=== PATIENT | female | born 1955 | race Caucasian/White ===

== ENCOUNTER 2017-08-15 15:37 | Emergency (ER) | payer MEDICARE ==
[~2017-08-15] VITALS: Ht 165.1 cm; Wt 47.2 kg
[~2017-08-15 15:37] MED LIST: AMBIEN 5 MG TABL5 M1; AMITRIPTYLINE H50 M2; ATIVAN0.5 M1 PO; BACTRIM DS TAB1 EACH PO; BUTALB-APAP-CA1 EACH PO; CARISOPRODOL 3350 M1; CARISOPRODOL 3350 MG PO; CIPRO500 M1 PO; CIPRO500 MG PO; CITRATE OF MAG296 ML PO; CLONAZEPAM 1 MG1 M1 PO; COCET PLUS TAB1 EACH; CONCERTA36 MG; CRESTOR10 MG PO; HYDROCODONE-APA1 TA1 PO; LEVAQUIN 250 M250 MG PO; MIRALAX17 GM PO; OXYCODONE HCL 55 MG PO; OXYCODONE HCL10 MG PO; OXYCODONE HCL5 M1; OXYCONTIN10 M1 PO; OXYCONTIN20 M1 PO; PHENAZOPYRIDIN200 M2 PO; SERTRALINE HCL50 MG PO; SYNTHROID50 MCG PO; TRAMADOL 50 MG50 MG; TRAZODONE HCL50 MG PO; ZANAFLEX4 MG PO; ZOFRAN 4 MG ORAL4 MG PO; ZOFRAN ODT4 MG PO
[2017-08-15] MEDS ORDERED: ZOFRAN4 MG PO (17:56)
[2017-08-15] MEDS ORDERED: BUTALB-APAP-CA1 EACH PO (17:56)
[2017-08-15 18:11] VITALS: BP 110/44
== END 2017-08-15 18:12 | disposition home or self-care (01) ==
LOC: M.ERS 15:37
DX: R51 Headache (principal); F32.9 Major depressive disorder, single episode, unspecified; Z90.721 Acquired absence of ovaries, unilateral; Z88.1 Allergy status to other antibiotic agents

== ENCOUNTER 2017-08-19 15:31 | Emergency (ER) | payer MEDICARE ==
[~2017-08-19] VITALS: Ht 165.1 cm; Wt 46.7 kg
[~2017-08-19 15:31] MED LIST changes: +ZOFRAN4 MG PO
[2017-08-19 16:07] LABS: ABSOLUTE EOSINOPHILS 0.2 thou/uL (0.0-0.7); ABSOLUTE LYMPHOCYTES 1.1 thou/uL (0.8-5.3); ABSOLUTE MONOCYTES 0.3 thou/uL (0.0-1.2); ABSOLUTE NEUTROPHILS 3.3 thou/uL (1.6-8.1); BASOPHILS 0.5 %; EOSINOPHILS 3.1 %; HEMATOCRIT 35.7 % (37.0-47.0); LYMPHOCYTES 22.1 %; MCH 28.9 pg (26.0-34.0); MCHC 33.6 g/dL (28.0-37.0); MCV 86.1 fL (80.0-100.0); MONOCYTES 6.9 %; MPV 10.4 fl. (7.2-11.1); NUCLEATED RBCS 0 /100WBC; PLATELET COUNT* 159 thou/uL (150-400); POLYS 67.4 %; RBC 4.15 mil/uL (4.20-5.00)
[2017-08-19 16:13] LABS: CALCIUM 8.8 mg/dL (8.5-10.1); CREATININE 0.8 mg/dL (0.6-1.3); POTASSIUM 3.3 mmol/L (3.5-5.1)
[2017-08-19 16:18] LABS: ALBUMIN 3.6 g/dL (3.4-5.0); TOTAL BILIRUBIN 0.2 mg/dL (<0.1-1.0); TOTAL PROTEIN 6.3 g/dL (6.4-8.2)
[2017-08-19] MEDS ORDERED: AUGMENTIN 875-1 EACH PO (19:09)
[2017-08-19] MEDS ORDERED: ACETAMINOPHEN-1 EAC1 PO (19:09)
[2017-08-19] MEDS ORDERED: MEDROLDOSEPACK PO (19:09)
[2017-08-19 19:26] VITALS: BP 104/45
== END 2017-08-19 19:29 | disposition home or self-care (01) ==
LOC: M.ERS 15:31
PROVIDERS: Physician Assistant
DX: J32.9 Chronic sinusitis, unspecified (principal); F32.9 Major depressive disorder, single episode, unspecified; Z88.1 Allergy status to other antibiotic agents

== ENCOUNTER 2017-08-31 18:28 | Emergency (ER) | payer MEDICARE ==
[~2017-08-31] VITALS: Ht 165.1 cm; Wt 46.7 kg
[~2017-08-31 18:28] MED LIST changes: +ACETAMINOPHEN-1 EAC1 PO; +AUGMENTIN 875-1 EACH PO; +MEDROLDOSEPACK PO
[2017-08-31] MEDS ORDERED: FIORINAL 50-321 EACH PO (20:06)
[2017-08-31] MEDS ORDERED: XANAX1 MG PO (20:06)
[2017-08-31 20:22] VITALS: BP 116/47
== END 2017-08-31 20:23 | disposition home or self-care (01) ==
LOC: M.ERS 18:28
DX: G43.909 Migraine, unspecified, not intractable, without status migrainosus (principal); F41.9 Anxiety disorder, unspecified; F32.9 Major depressive disorder, single episode, unspecified; G47.00 Insomnia, unspecified; Z90.49 Acquired absence of other specified parts of digestive tract; Z90.721 Acquired absence of ovaries, unilateral; Z88.1 Allergy status to other antibiotic agents

== ENCOUNTER 2018-02-20 13:08 | Emergency (ER) | payer MEDICARE ==
[~2018-02-20] VITALS: Ht 165.1 cm; Wt 47.6 kg
[~2018-02-20 13:08] MED LIST changes: +FIORINAL 50-321 EACH PO; +XANAX1 MG PO
[2018-02-20] MEDS ORDERED: KLONOPIN0.5 MG PO (13:17)
[2018-02-20 14:36] VITALS: BP 112/56
== END 2018-02-20 14:37 | disposition home or self-care (01) ==
LOC: M.ERS 13:08
DX: F41.9 Anxiety disorder, unspecified (principal); R51 Headache; R11.0 Nausea; F32.9 Major depressive disorder, single episode, unspecified